=== PATIENT | female | born 1960 | race African-American/Black ===

== ENCOUNTER → 2023-02-12 | Day surgery (SDC) | payer OTHER ==
[~2023-02-12] MED LIST: CLOPIDOGREL75 MG PO; DEXTROSE 5% 250ML 250 ML IV ONE; FENTANYL CITRATE/PF 100MCG/2 ML INJ ONE; FUROSEMIDE40 MG PO; LACTATED RINGER'S 0 ML ONE; LACTATED RINGER'S 1,000 ML ONE; LEVOTHYROXINE50 MCG PO; LOSARTAN-HCTZ1 EACH; MELOXICAM7.5 MG PO; MIDAZOLAM HCL 2 MG/2 ML VIAL ONE; NEURONTIN300 MG PO; OMEPRAZOLE40 MG PO; OR PHACO EYE KIT ONE; PLAQUENIL200 MG PO; POTASSIUM CHLO10 ME1 PO; PREDNISONE5 MG/5 ML PO; PREOP PHACO EYE KIT ONE; PROMETHAZINE HC25 M1 PO; SIMVASTATIN20 MG PO; TRULICITY3 MG/0.5 M
[2023-02-12 09:36] VITALS: TEMP 97.1
[2023-02-12 09:56] VITALS: BP 147/79; PULSE 61; RESP 18; O2SAT 98
== END | disposition home or self-care (01) ==
LOC: OR 06:57
PROVIDERS: ATTEND Ophthalmology
DX: H25.12 Age-related nuclear cataract, left eye (principal); G47.33 Obstructive sleep apnea (adult) (pediatric); I11.0 Hypertensive heart disease with heart failure; I50.9 Heart failure, unspecified; I25.10 Atherosclerotic heart disease of native coronary artery without angina pectoris; E78.5 Hyperlipidemia, unspecified; K21.9 Gastro-esophageal reflux disease without esophagitis; E03.9 Hypothyroidism, unspecified; Z79.1 Long term (current) use of non-steroidal anti-inflammatories (NSAID); Z79.02 Long term (current) use of antithrombotics/antiplatelets; Z79.899 Other long term (current) drug therapy
CPT/HCPCS: 36415; 66984; 82948; J2250; J3010; J7070; J7121; V2632